=== PATIENT | female | born 1960 | race Caucasian/White ===

== ENCOUNTER 2018-04-26 03:16 | Emergency (ER) | payer OTHER ==
--- NOTE | 2018-04-26 03:19 | ER Report ---
History and Physical Time Seen By MD: 03:18 HPI/ROS CHIEF COMPLAINT: Dizziness, chest tightness HISTORY OF PRESENT ILLNESS: 57-year-old female from [place] traveling through [place] not feeling well tonight. She had a headache yesterday. She's noted vertigo with bending over for several weeks. The vertigo was worse. Tonight she developed chest tightness. Presented to the ER for evaluation. She notes the pain radiates into her jaw. She's had some mild nausea but no diaphoresis or shortness of breath. Patient has a history of hypothyroidism. Takes no other medications. Patient denies recent illness, fever, chills or cough. She denies cardiac risk factors. REVIEW OF SYSTEMS: Respiratory: No cough, no dyspnea. Cardiovascular: No chest pain, no palpitations. Gastrointestinal: No vomiting, no abdominal pain. Musculoskeletal: No back pain. Allergies: Coded Allergies: Sulfa (Sulfonamide Antibiotics) (Verified Allergy, Intermediate, RASH, ) Home Meds Reported Medications Levothyroxine Sodium (SYNTHROID) 50 Mcg Tablet, 50 MCG PO QDAY, TAB 04/26/18 Aspirin (ASPIRIN EC) 81 Mg Tablet.dr, 81 MG PO QDAY, TAB 04/26/18 Past Medical/Surgical History Hypothyroidism Reviewed Nurses Notes: Yes Old Medical Records Reviewed: Yes Constitutional Vital Sign - Last 24 Hours 04/26/18 04/26/18 04/26/18 04/26/18 03:24 03:30 03:31 03:46 Temp 98.3 Pulse 71 ??? 65 Resp 16 18 B/P (MAP) 171/104 162/102 (122) Pulse Ox 97 97 97 O2 Delivery Room Air 04/26/18 04/26/18 04/26/18 04/26/18 04:15 04:16 04:30 04:31 Pulse 65 63 Resp 14 24 B/P (MAP) 149/96 (113) 141/93 (109) Pulse Ox 96 94 04/26/18 04/26/18 04:36 04:51 Pulse 62 66 Resp 12 15 Pulse Ox 95 93 Physical Exam General Appearance: The patient is alert, has no immediate need for airway protection and no current signs of toxicity. Mild distress, vital signs stable , afebrile, blood pressure elevated HEENT: Pupils equal and round no injection. TMs normal, oropharynx without redness or exudate, mucous members are moist Respiratory: Chest is non tender, lungs are clear to auscultation. No wheezing or rails Cardiac: regular rate and rhythm, no murmur Gastrointestinal: Abdomen is soft and non tender, no masses, bowel sounds normal. Musculoskeletal: Neck: Neck is supple and non tender. No lymphadenopathy Extremities have full range of motion and are non tender. Skin: No rashes or lesions. DIFFERENTIAL DIAGNOSIS: After history and physical exam differential diagnosis was considered for headache including but not limited to subarachnoid hemorrhage , migraine headache, tension headache and infectious causes such as meningitis, pharyngitis and sinusitis. Additionally,chest pain including but not limited to myocardial ischemia, pericarditis pulmonary embolus, chest wall pain, pleural inflammation and pulmonary infectious causes. Medical Decision Making Data Points Result Diagram: 04/26/18 0335 04/26/18 0335 Laboratory Hematology Test 04/26/18 03:26 04/26/18 03:35 Urine Color Yellow Urine Clarity Clear Urine pH 6.0 pH (4.8-9.5) Urine Specific [place] 1.015 Urine Protein Negative mg/dL (NEGATIVE) Urine Glucose (UA) Negative mg/dL (NEGATIVE) Urine Ketones Negative mg/dL (NEGATIVE) Urine Blood Small (NEGATIVE) Urine Nitrite Negative (NEGATIVE) Urine Bilirubin Negative (NEGATIVE) Urine Urobilinogen Negative mg/dL (0.2-1.9) Urine Leukocyte Esterase Small (NEGATIVE) Urine RBC 1 /HPF (0-2/HPF) Urine WBC 5 /HPF (0-5/HPF) Urine Squamous Epithelial Cells Many /LPF (</=FEW) Urine Transitional Epithelial Cells Few /LPF (NONE-FEW) Urine Bacteria Few /HPF (NONE-FEW) Urine Mucus None /HPF (NONE-FEW) Red Blood Count 5.00 M/uL (4.17-5.56) Mean Corpuscular Volume 89.4 fL (80.0-96.0) Mean Corpuscular Hemoglobin 30.8 pg (26.0-33.0) Mean Corpuscular Hemoglobin Concent 34.4 g/dL (32.0-36.0) Red Cell Distribution Width 13.9 % (11.5-14.5) Mean Platelet Volume 8.9 fL (7.2-11.1) Neutrophils (%) (Auto) 40.7 % (39.4-72.5) Lymphocytes (%) (Auto) 50.0 % (17.6-49.6) Monocytes (%) (Auto) 7.2 % (4.1-12.4) Eosinophils (%) (Auto) 1.0 % (0.4-6.7) Basophils (%) (Auto) 1.1 % (0.3-1.4) Nucleated RBC Relative Count (auto) 0.0 /100WBC Neutrophils # (Auto) 2.3 K/uL (2.0-7.4) Lymphocytes # (Auto) 2.8 K/uL (1.3-3.6) Monocytes # (Auto) 0.4 K/uL (0.3-1.0) Eosinophils # (Auto) 0.1 K/uL (0.0-0.5) Basophils # (Auto) 0.1 K/uL (0.0-0.1) Nucleated RBC Absolute Count (auto) 0.00 K/uL D-Dimer Quantitative (PE/DVT) < 0.27 ug/ml (0-0.50) Sodium Level 141 mmol/L (137-145) Potassium Level 3.5 mmol/L (3.5-5.0) Chloride Level 103 mmol/L (98-107) Carbon Dioxide Level 26 mmol/L (22-31) Blood Urea Nitrogen 15 mg/dl (7-18) Creatinine 0.70 mg/dl (0.52-1.04) Glomerular Filtration Rate Calc > 60.0 Random Glucose 99 mg/dl (75-110) Calcium Level 9.1 mg/dl (8.4-10.2) Total Bilirubin 0.4 mg/dl (0.2-1.3) Aspartate Amino Transf (AST/SGOT) 25 U/L (0-35) Alanine Aminotransferase (ALT/SGPT) 29 U/L (0-56) Alkaline Phosphatase 67 U/L (0-126) Troponin I < 0.012 ng/ml Total Protein 7.2 g/dl (6.3-8.2) Albumin 4.1 g/dl (3.5-5.0) Chemistry Test 04/26/18 03:26 04/26/18 03:35 Urine Color Yellow Urine Clarity Clear Urine pH 6.0 pH (4.8-9.5) Urine Specific [place] 1.015 Urine Protein Negative mg/dL (NEGATIVE) Urine Glucose (UA) Negative mg/dL (NEGATIVE) Urine Ketones Negative mg/dL (NEGATIVE) Urine Blood Small (NEGATIVE) Urine Nitrite Negative (NEGATIVE) Urine Bilirubin Negative (NEGATIVE) Urine Urobilinogen Negative mg/dL (0.2-1.9) Urine Leukocyte Esterase Small (NEGATIVE) Urine RBC 1 /HPF (0-2/HPF) Urine WBC 5 /HPF (0-5/HPF) Urine Squamous Epithelial Cells Many /LPF (</=FEW) Urine Transitional Epithelial Cells Few /LPF (NONE-FEW) Urine Bacteria Few /HPF (NONE-FEW) Urine Mucus None /HPF (NONE-FEW) White Blood Count 5.7 k/uL (4.5-11.0) Red Blood Count 5.00 M/uL (4.17-5.56) Hemoglobin 15.4 g/dL (12.0-16.0) Hematocrit 44.7 % (34.0-47.0) Mean Corpuscular Volume 89.4 fL (80.0-96.0) Mean Corpuscular Hemoglobin 30.8 pg (26.0-33.0) Mean Corpuscular Hemoglobin Concent 34.4 g/dL (32.0-36.0) Red Cell Distribution Width 13.9 % (11.5-14.5) Platelet Count 191 K/uL (150-450) Mean Platelet Volume 8.9 fL (7.2-11.1) Neutrophils (%) (Auto) 40.7 % (39.4-72.5) Lymphocytes (%) (Auto) 50.0 % (17.6-49.6) Monocytes (%) (Auto) 7.2 % (4.1-12.4) Eosinophils (%) (Auto) 1.0 % (0.4-6.7) Basophils (%) (Auto) 1.1 % (0.3-1.4) Nucleated RBC Relative Count (auto) 0.0 /100WBC Neutrophils # (Auto) 2.3 K/uL (2.0-7.4) Lymphocytes # (Auto) 2.8 K/uL (1.3-3.6) Monocytes # (Auto) 0.4 K/uL (0.3-1.0) Eosinophils # (Auto) 0.1 K/uL (0.0-0.5) Basophils # (Auto) 0.1 K/uL (0.0-0.1) Nucleated RBC Absolute Count (auto) 0.00 K/uL D-Dimer Quantitative (PE/DVT) < 0.27 ug/ml (0-0.50) Glomerular Filtration Rate Calc > 60.0 Calcium Level 9.1 mg/dl (8.4-10.2) Total Bilirubin 0.4 mg/dl (0.2-1.3) Aspartate Amino Transf (AST/SGOT) 25 U/L (0-35) Alanine Aminotransferase (ALT/SGPT) 29 U/L (0-56) Alkaline Phosphatase 67 U/L (0-126) Troponin I < 0.012 ng/ml Total Protein 7.2 g/dl (6.3-8.2) Albumin 4.1 g/dl (3.5-5.0) Coagulation Test 04/26/18 03:35 D-Dimer Quantitative (PE/DVT) < 0.27 ug/ml Urinalysis Test 04/26/18 03:26 Urine Color Yellow Urine Clarity Clear Urine pH 6.0 pH (4.8-9.5) Urine Specific [place] 1.015 Urine Protein Negative mg/dL (NEGATIVE) Urine Glucose (UA) Negative mg/dL (NEGATIVE) Urine Ketones Negative mg/dL (NEGATIVE) Urine Blood Small (NEGATIVE) Urine Nitrite Negative (NEGATIVE) Urine Bilirubin Negative (NEGATIVE) Urine Urobilinogen Negative mg/dL (0.2-1.9) Urine Leukocyte Esterase Small (NEGATIVE) Urine RBC 1 /HPF (0-2/HPF) Urine WBC 5 /HPF (0-5/HPF) Urine Squamous Epithelial Cells Many /LPF (</=FEW) Urine Transitional Epithelial Cells Few /LPF (NONE-FEW) Urine Bacteria Few /HPF (NONE-FEW) Urine Mucus None /HPF (NONE-FEW) EKG/Imaging EKG Interpretation 12 lead EK Rhythm: normal sinus rhythm at 74 bpm [place]: normal QRS: normal ST segments: Diffuse nonspecific ST and T-wave changes/T-wave flattening Imaging X-ray: Two-view chest x-ray was obtained. I viewed the images myself on the PACS system. My interpretation of the images is: No infiltrate, no effusion, normal mediastinum. The radiologist interpretation had no clinically significant variation from this interpretation. Results: CT scan of the head was obtained. The results of the study are no acute findings. The study was read by the radiologist. I viewed the images myself on the PACS system. ED Course/Re-evaluation Clinical Indication for ER IV: IV Access ED Course Patient was admitted to an examination room. H&P was done. The differential diagnoses was considered. On clinical examination. Patient has a benign exam. Her EKG is unremarkable. Diagnostic laboratory studies show a normal troponin , normal d-dimer. Patient has a chest x-ray and a CT scan which are also unremarkable. She is reassured that she likely has benign positional vertigo or some vertigo disorder. She is advised to follow-up with her primary care in [place] for referral to ENT specialty. She may also benefit from MRI. Patient advised to try meclizine [id number] for symptomatic relief of her dizziness. Decision to Disposition Date: Apr 26, 2018 Decision to Disposition Time: 04:34 Depart Departure Latest Vital Signs Vital Signs Date Time Temp Pulse Resp B/P (MAP) Pulse Ox O2 Delivery O2 Flow Rate FiO2 04/26/18 04:51 66 15 93 04/26/18 04:30 141/93 (109) 04/26/18 03:24 98.3 Room Air Impression: Primary Impression: Headache Additional Impressions: Vertigo Chest tightness or pressure Hypothyroidism Condition: Improved Disposition: HOME OR SELF-CARE Patient Instructions: Vertigo (ED) Additional Instructions: Try meclizine or Dramamine Follow-up with your primary care for referral to ENT for further evaluation Problem Qualifiers Primary Impression: Headache Headache type: unspecified Headache chronicity pattern: acute headache Intractability: not intractable Qualified Codes: R51 - Headache Additional Impressions: Hypothyroidism Hypothyroidism type: unspecified Qualified Codes: E03.9 - Hypothyroidism, unspecified JERONIMO VALDEZ DO Apr 26, 2018 03:19
[2018-04-26 03:45] LABS: PLATELET COUNT, AUTOMATED 191 K/uL (150-450)
--- NOTE | 2018-04-26 03:47 | EKG ---
FACILITY: [facility] PATIENT NAME: IESHA DAVIS : [id number] MR: [id number] V: [id number] EXAM DATE: ORDERING PHYSICIAN: JERONIMO VALDEZ TECHNOLOGIST: Test Reason : Blood Pressure : / mmHG Vent. Rate : 074 BPM Atrial Rate : 075 BPM P-R Int : 000 ms QRS Dur : 080 ms QT Int : 414 ms P-R-T Axes : 000 046 051 degrees QTc Int : 459 ms Possible accelerated junctional rhythm vs. sinus rhythm with P waves difficult to identify (unusual m orphology in lead II) Abnormal ECG No previous ECGs available Confirmed by ZAY DELUCA ([id number]) on 04/26/2018 6:20:12 AM Referred By: Confirmed By:ZAY DELUCA
[2018-04-26] MEDS ORDERED: LEVO50TA80 PO (04:08)
[2018-04-26] MEDS ORDERED: ASPI81TA86 PO (04:08)
--- NOTE | 2018-04-26 04:20 | RADIOLOGY IMAGING REPORT ---
FACILITY: [facility] PATIENT NAME: Marjorie Garrison : 1960 MR: [id number] V: [id number] EXAM DATE: ORDERING PHYSICIAN: JERONIMO VALDEZ TECHNOLOGIST: Location: [facility] Patient: Marjorie Garrison : 1960 Visit/Account:[id number] Date of Sevice: 04/26/2018 TWO VIEW CHEST 04/26/2018 3:58 AM. INDICATION: Chest pain. COMPARISON: None. FINDINGS: Lungs are well-expanded. The lungs are clear. No pneumothorax or pleural effusion. Pulmo nary vasculature is unremarkable. Heart size is normal. Mild rightward curvature of the thoracic sp ine. IMPRESSION: No acute cardiopulmonary abnormality. Report Dictated By: Kasi Weiss MD at 04/26/2018 4:14 AM Report E-Signed By: Kasi Weiss MD at 04/26/2018 4:15 AM WSN:[id number]
--- NOTE | 2018-04-26 04:22 | RADIOLOGY IMAGING REPORT ---
FACILITY: [facility] PATIENT NAME: Marjorie Garrison : 1960 MR: [id number] V: [id number] EXAM DATE: ORDERING PHYSICIAN: JERONIMO VALDEZ TECHNOLOGIST: Location: [facility] Patient: Marjorie Garrison : 1960 Visit/Account:[id number] Date of Sevice: 04/26/2018 CT Head without contrast Indication: Headache, dizziness. Comparison: None available. Technique: Axial CT images were obtained through the brain from the skull base to the vertex without administration of IV contrast. One of the following dose optimization techniques was utilized in th e performance of this exam: Automated exposure control; adjustment of the mA and/or kV according to t he patient's size; or use of an iterative reconstruction technique. Specific details can be referen jered in the facility's radiology CT exam operational policy. Findings: No evidence of mass, mass effect, or midline shift. No acute intracranial hemorrhage or acute territorial infarction. Skull is normal. Globes and orbits are normal. The visualized paranasal sinuses and mastoid air spaces are clear. IMPRESSION: No acute intracranial abnormality. Report Dictated By: Kasi Weiss MD at 04/26/2018 4:16 AM Report E-Signed By: Kasi Weiss MD at 04/26/2018 4:19 AM WSN:[id number]
[2018-04-26 04:30] VITALS: BP 141/93
== END 2018-04-26 05:00 | disposition home or self-care (01) ==
LOC: ER 03:25
DX: R42 Dizziness and giddiness (principal); R51 Headache; R07.89 Other chest pain; E03.9 Hypothyroidism, unspecified
CPT/HCPCS: 70450; 71046; 81001; 82040; 82247; 82310; 82374; 82435; 82565; 82947; 84075; 84132; 84155; 84295; 84450; 84460; 84484; 84520; 85025; 85379; 93005; 99284